=== PATIENT | male | born 1955 ===

== ENCOUNTER 2019-04-05 09:00 | Inpatient (IN) | payer OTHER ==
[~2019-04-05] VITALS: Ht 172.7 cm; Wt 95.3 kg
== END 2019-04-13 18:19 | disposition home or self-care (01) | DRG 334 ==
LOC: O/R 04-10 07:40 → SURG 04-10 07:40 → O/R 04-10 09:00 → SURG 04-10 15:34
PROVIDERS: ADMIT Colon & Rectal Surgery
PROC: 0DJD8ZZ Inspection of Lower Intestinal Tract, Via Natural or Artificial Opening Endoscopic (ICD-10-PCS; 2019-04-10)
PROC: 0DTP4ZZ Resection of Rectum, Percutaneous Endoscopic Approach (ICD-10-PCS; principal; 2019-04-10 12:45)
DX: K57.20 Diverticulitis of large intestine with perforation and abscess without bleeding (principal); G47.33 Obstructive sleep apnea (adult) (pediatric); I87.2 Venous insufficiency (chronic) (peripheral); Z53.1 Procedure and treatment not carried out because of patient's decision for reasons of belief and group pressure

== ENCOUNTER 2020-05-23 08:05 | Day surgery (SDC) | payer OTHER | END 2020-05-23 14:42 | disposition home or self-care (01) | LOC: AMB-ENDOS 08:05 | PROVIDERS: ATTEND Colon & Rectal Surgery | DX: K63.5 Polyp of colon (principal); Z53.1 Procedure and treatment not carried out because of patient's decision for reasons of belief and group pressure; K64.0 First degree hemorrhoids; Z20.822 Contact with and (suspected) exposure to COVID-19 ==